=== PATIENT | male | born 1960 ===

== ENCOUNTER 2018-05-14 10:40 | Inpatient (IN) | payer BC ==
[2018-05-14] MEDS ORDERED: DiphenhydrAMINE 50 mg/ml Inj IVP STA (11:27)
[2018-05-14 11:55] LABS: EOS % 0.1 % (0.0-4.0); LYMPH # 0.5 K/uL (1.0-4.3); MONO # 0.6 K/uL (0.0-0.8)
[2018-05-14 11:57] LABS: SQUAMOUS EPITHIAL < 1 /hpf (0-5); URINE BACTERIA RARE (<OCC); URINE BILIRUBIN NEGATIVE (NEGATIVE); URINE CLARITY Clear (Clear); URINE COLOR Yellow (YELLOW); URINE GLUCOSE (UA) NORMAL (Normal); URINE LEUKOCYTE ESTERASE NEG Leu/uL (Negative); URINE PROTEIN 1+ mg/dL (NEGATIVE)
[2018-05-14 11:59] LABS: BASO % 0.2 % (0.0-2.0); HEMOGLOBIN 13.7 g/dL (12.0-18.0); MEAN CELL VOLUME 84.2 fL (80.0-94.0); MEAN CORPUSCULAR HEMOGLOBIN 29.7 pg (27.0-31.0); MEAN CORPUSCULAR HGB CONC 35.3 g/dL (33.0-37.0); MEAN PLATELET VOLUME 7.8 fL (7.2-11.7); MONO % 8.8 % (0.0-10.0); NEUT % 83.9 % (50.0-75.0); NRBC % 0.2 % (0.0-2.0); RBC 4.62 Mil/uL (4.40-5.90); RED CELL DISTRIBUTION WIDTH 13.9 % (11.5-14.5); WHITE BLOOD COUNT 7.2 K/uL (4.8-10.8)
[2018-05-14 12:00] LABS: PLATELET COUNT 106 K/uL (130-400)
[2018-05-14] MEDS ORDERED: DiphenhydrAMINE 50 mg/ml Inj ONE (12:00)
[2018-05-14 12:03] LABS: URINE BLOOD 2+ (NEGATIVE)
[2018-05-14 12:08] LABS: ALB/GLOB RATIO 1.2 (1.0-2.1); ALBUMIN 4.1 g/dL (3.5-5.0); ALT/SGPT 203 U/L (21-72); AST/SGOT 149 U/L (17-59); BLOOD UREA NITROGEN 14 mg/dL (9-20); CALCIUM 9.8 mg/dl (8.6-10.4); GFR AFRICAN-AMERICAN > 60; GFR NON-AFRICAN AMERICAN > 60
[2018-05-14 12:12] VITALS: RESP 20
[2018-05-14 12:17] LABS: LYMPHOCYTE 11 % (20-40); MONOCYTE 5 % (0-10); NEUTROPHIL 84 % (50-75); PLATELET ESTIMATE SLIGHTLY DECREASED (NORMAL); TOTAL CELLS COUNTED 100
--- NOTE | 2018-05-14 14:02 | CT ---
Date of service: 05/14/2018 PROCEDURE: CT HEAD WITHOUT CONTRAST. HISTORY: dizziness COMPARISON: None available. TECHNIQUE: Axial computed tomography images were obtained through the head/brain without intravenous contrast. Radiation dose: Total exam DLP = 917.87 mGy-cm. This CT exam was performed using one or more of the following dose reduction techniques: Automated exposure control, adjustment of the mA and/or kV according to patient size, and/or use of iterative reconstruction technique. FINDINGS: HEMORRHAGE: No intracranial hemorrhage. BRAIN: Trace lucency is seen at the low left frontal lobe in subcortical white matter under 1 cm size. This may reflect chronic microangiopathy. No cortical edema is seen associated with this structure in the remaining white matter is normal in density overall, including the corpus callosum. Normal corticomedullary differentiation is appreciated throughout the brain and there is no mass effect. No suspicious extra-axial fluid collection identified. VENTRICLES: Unremarkable. No hydrocephalus. CALVARIUM: Unremarkable. PARANASAL SINUSES: Unremarkable as visualized. No significant inflammatory changes. MASTOID AIR CELLS: Unremarkable as visualized. No inflammatory changes. OTHER FINDINGS: None. IMPRESSION: Limited subcortical lucency left frontal lobe may reflect chronic microangiopathy this patient, which would be for age-appropriate. Given the normal appearance of the remaining supra and infratentorial brain parenchyma, precaution follow-up MRI is recommended nevertheless. No CT evidence of intracranial hemorrhage mass effect or cortical edema.
[2018-05-14] MEDS ORDERED: cefTRIAXone IV 1 gm in Dextros 50 ML IVPB ONE (14:11)
--- NOTE | 2018-05-14 14:30 | RAD ---
Date of service: 05/14/2018 HISTORY: SOB COMPARISON: No prior. TECHNIQUE: Chest PA and lateral FINDINGS: LUNGS: No active pulmonary disease. PLEURA: No significant pleural effusion identified. No pneumothorax apparent. CARDIOVASCULAR: Normal. OSSEOUS STRUCTURES: No significant abnormalities. VISUALIZED UPPER ABDOMEN: Normal. OTHER FINDINGS: None. IMPRESSION: No acute cardiopulmonary disease appreciated.
--- NOTE | 2018-05-14 14:45 | C.PDOC ---
History Of Present Illness 58 year old male with a history of HIV (CD4 500, viral load undetectable) reports a five-day history of experiencing headaches, body aches, nausea, vomiting, and a tactile fever for which he did not obtain a temperature. Patient reports that his headache is of gradual onset and denies thunderclap association. Patient denies cough, diarrhea, rash, or recent travel. He reports being evaluated at [facility] four days ago, where he was placed on Augmentin for sinusitis, with no relief of his symptoms. Time Seen by Provider: 05/14/18 11:10 Chief Complaint (Nursing): Headache History Per: Patient History/Exam Limitations: no limitations Onset/Duration Of Symptoms: Days (5) Current Symptoms Are (Timing): Still Present Quality: Aching Past Medical History Reviewed: Historical Data, Nursing Documentation, Vital Signs Vital Signs: Last Vital Signs Temp 99.7 F H 05/14/18 12:11 Pulse 73 05/14/18 12:11 Resp 20 05/14/18 12:11 BP 143/72 05/14/18 12:11 Pulse Ox 96 05/14/18 15:08 - Medical History PMH: HIV Surgical History: No Surg Hx Family History: States: No Known Family Hx - Social History Hx Alcohol Use: No Hx Substance Use: No - Immunization History Hx Tetanus Toxoid Vaccination: No Hx Influenza Vaccination: No Hx Pneumococcal Vaccination: No Review Of Systems Except As Marked, All Systems Reviewed And Found Negative. Constitutional: Positive for: Malaise Gastrointestinal: Positive for: Nausea, Vomiting Neurological: Positive for: Headache Physical Exam - Physical Exam Appears: Non-toxic, No Acute Distress Skin: Warm, Dry Head: Atraumatic, Normacephalic Eye(s): bilateral: Normal Inspection Nose: Normal, No Discharge Oral Mucosa: Moist Throat: Normal, No Erythema, No Exudate Neck: Normal, Supple Chest: Symmetrical, No Tenderness Cardiovascular: Rhythm Regular, No Murmur Respiratory: Normal Breath Sounds, No Rales, No Rhonchi, No Wheezing Gastrointestinal/Abdominal: Normal Exam, Soft, No Guarding, No Rebound Extremity: Tenderness (to bilateral triceps and thighs), Other (negative brudzinski's and kernig's signs, no weakness of extremities) Neurological/Psych: Oriented x3, Normal Speech, Normal Cognition ED Course And Treatment - Laboratory Results Result Diagrams: 05/14/18 11:49 05/14/18 11:49 O2 Sat by Pulse Oximetry: 96 (RA) Pulse Ox Interpretation: Normal Medical Decision Making Medical Decision Making: Assessment: Headache, vomiting Plan: CT Head w/o Contrast EKG CMP CPK Erythrocyte Sedimentation Rate CXR Two Views Benadryl 25mg IVP Reglan 10mg IVP Rocephin 1gm Tylenol 975mg PO Blood Culture Urine Culture Given dose of Abx to treat presumed sinusitis. CT Scan normal, patient was offered an LP but refused. Case discussed with Dr. Jayy Garsia, who agreed upon admission. Disposition Counseled Patient/Family Regarding: Studies Performed, Diagnosis, Need For Followup, Rx Given - Disposition Disposition: HOME/ ROUTINE Disposition Time: 14:42 Condition: STABLE Additional Instructions: d Prescriptions: Naproxen [Naprosyn] 500 mg PO BID PRN #16 tab PRN Reason: Pain, Moderate (4-7) Ondansetron ODT [Zofran ODT] 4 mg PO TID PRN #12 odt PRN Reason: Nausea/Vomiting Instructions: Headache, Adult, Muscle and Bone Pain (DC) - Clinical Impression Clinical Impression: Headache, Muscle ache - Scribe Statement The provider has reviewed the documentation as recorded by the Scribe (Espinoza Washington) Provider Attestation: All medical record entries made by the Scribe were at my direction and personally dictated by me. I have reviewed the chart and agree that the record accurately reflects my personal performance of the history, physical exam, medical decision making, and the department course for this patient. I have also personally directed, reviewed, and agree with the discharge instructions and disposition.
--- NOTE | 2018-05-14 17:36 | CP.PCM.HP ---
Present on Admission - Present on Admission Any Indicators Present on Admission: No Past Patient History - Past Social History Smoking Status: Never Smoked - HEMATOLOGICAL/ONCOLOGICAL Hx Human Immunodeficiency Virus (HIV): Yes - PSYCHIATRIC Hx Substance Use: No Meds Home Medications: Home Medication List Medication Instructions Recorded Confirmed Type Naproxen [Naprosyn] 500 mg PO BID PRN #16 tab 05/14/18 Rx Ondansetron ODT [Zofran ODT] 4 mg PO TID PRN #12 odt 05/14/18 Rx Allergies/Adverse Reactions: Allergies Allergy/AdvReac Type Severity Reaction Status Date / Time No Known Allergies Allergy Unverified 05/14/18 10:55 Results - Vital Signs Recent Vital Signs: Last Vital Signs Temp 99.7 F H 05/14/18 16:06 Pulse 52 L 05/14/18 16:06 Resp 20 05/14/18 16:06 BP 103/72 05/14/18 16:06 Pulse Ox 98 05/14/18 16:06 - Labs Result Diagrams: 05/14/18 11:49 05/14/18 11:49 Labs: Laboratory Results - last 24 hr 05/14/18 05/14/18 05/14/18 11:49 11:49 11:49 WBC 7.2 RBC 4.62 Hgb 13.7 Hct 38.9 MCV 84.2 MCH 29.7 MCHC 35.3 RDW 13.9 Plt Count 106 L MPV 7.8 Neut % (Auto) 83.9 H Lymph % (Auto) 7.0 L [place] % (Auto) 8.8 Eos % (Auto) 0.1 Baso % (Auto) 0.2 Neut # (Auto) 6.0 Lymph # (Auto) 0.5 L [place] # (Auto) 0.6 Eos # (Auto) 0.0 Baso # (Auto) 0.0 Neutrophils % (Manual) 84 H Lymphocytes % (Manual) 11 L Monocytes % (Manual) 5 Platelet Estimate Slightly decreased L RBC Morphology Normal ESR 40 H Sodium 142 Potassium 4.4 Chloride 101 Carbon Dioxide 28 Anion Gap 18 BUN 14 Creatinine 1.1 Est GFR ( Amer) > 60 Est GFR (Non-Af Amer) > 60 Random Glucose 150 H Calcium 9.8 Total Bilirubin 1.1 AST 149 H ALT 203 H Alkaline Phosphatase 165 H Total Creatine Kinase Total Protein 7.4 Albumin 4.1 Globulin 3.3 Albumin/Globulin Ratio 1.2 TSH 3rd Generation 0.86 Urine Color Yellow Urine Clarity Clear Urine pH 5.0 Ur Specific [place] 1.010 Urine Protein 1+ H Urine Glucose (UA) Normal Urine Ketones Negative Urine Blood 2+ H Urine Nitrate Negative Urine Bilirubin Negative Urine Urobilinogen 4.0 Ur Leukocyte Esterase Neg Urine WBC (Auto) 2 Urine RBC (Auto) 9 H Ur Squamous Epith Cells < 1 Urine Bacteria Rare 05/14/18 11:49 WBC RBC Hgb Hct MCV MCH MCHC RDW Plt Count MPV Neut % (Auto) Lymph % (Auto) [place] % (Auto) Eos % (Auto) Baso % (Auto) Neut # (Auto) Lymph # (Auto) [place] # (Auto) Eos # (Auto) Baso # (Auto) Neutrophils % (Manual) Lymphocytes % (Manual) Monocytes % (Manual) Platelet Estimate RBC Morphology ESR Sodium Potassium Chloride Carbon Dioxide Anion Gap BUN Creatinine Est GFR ( Amer) Est GFR (Non-Af Amer) Random Glucose Calcium Total Bilirubin AST ALT Alkaline Phosphatase Total Creatine Kinase 110 Total Protein Albumin Globulin Albumin/Globulin Ratio TSH 3rd Generation Urine Color Urine Clarity Urine pH Ur Specific [place] Urine Protein Urine Glucose (UA) Urine Ketones Urine Blood Urine Nitrate Urine Bilirubin Urine Urobilinogen Ur Leukocyte Esterase Urine WBC (Auto) Urine RBC (Auto) Ur Squamous Epith Cells Urine Bacteria Assessment & Plan - Assessment and Plan (Free Text) Plan: Rocephin blood culture and urine culture Protonix Lovenox Rocephin ID consult Tramadol As needed for pain Monitor the fever Follow-up with the septic work
[2018-05-14] MEDS: Vancomycin 1 GM in Sodium Chloride 0.9% 200 ML IVPB SCH (19:57)
[2018-05-14 21:58] LABS: N MENINGITIS ACY/W135 NEGATIVE (NEGATIVE); N MENINGITIS B/ECOLI K1 NEGATIVE (NEGATIVE); STREP PNEUMONIAE NEGATIVE (NEGATIVE); STREPTOCOCCUS B NEGATIVE (NEGATIVE)
[2018-05-15] MEDS: Vancomycin 1 GM in Sodium Chloride 0.9% 200 ML IVPB SCH ×2 (06:30→18:35)
[2018-05-15 07:53] LABS: HEPATITIS B SURFACE AG Negative (NEGATIVE)
[2018-05-15 07:59] LABS: HEPATITIS A IGM NEGATIVE (NEGATIVE); HEPATITIS B CORE AB NEGATIVE (NEGATIVE)
[2018-05-15 09:34] LABS: HEPATITIS C ANTIBODY REACTIVE (NEGATIVE)
[2018-05-15] MEDS: Enoxaparin 40 mg Syringe SC SCH (10:50)
[2018-05-15] MEDS: Pantoprazole 40 mg EC Tab PO SCH (10:50)
--- NOTE | 2018-05-15 13:58 | MRI ---
Date of service: 05/15/2018 PROCEDURE: MRI BRAIN WITHOUT CONTRAST HISTORY: Severe headache, HIV COMPARISON: Comparison made with prior CT scan brain 05/14/2018. TECHNIQUE: Multiplanar, multisequence MR images of the brain were obtained without intravenous contrast enhancement. FINDINGS: HEMORRHAGE: No acute parenchymal, subarachnoid nor extra-axial hemorrhage. No evidence of hemosiderin deposition identified on gradient echo weighted sequence. DWI: No evidence of an acute or early subacute infarction seen on diffusion imaging. . . BRAIN PARENCHYMA: There are multiple varying sized of small foci of low prolonged T2 signal seen scattered about subcortical white matter both cerebral hemispheres. Changes are nonspecific though could represent tiny chronic lacunar type infarcts. Differential diagnosis would include sequela of old trauma, migraine headaches or post infectious/ inflammatory etiologies. Demyelinating disease process would be less likely. None of these changes exhibit restricted diffusion No obvious parenchymal nor extra-axial mass or collection identified on this noncontrast exam Ventricular and sulcal size are within range of normal for this patient's stated age. VENTRICLES: No obstructive hydrocephalus. CRANIUM: Unremarkable. ORBITS: Orbits and contents appear grossly unremarkable PARANASAL SINUSES/MASTOIDS: Tiny focus of mucosal thickening in the posterior aspect right maxillary antrum again noted VASCULAR SYSTEM: Visualized major vascular flow voids at skull base patent. OTHER FINDINGS: None. IMPRESSION: No acute intracranial hemorrhage or infarct. Multiple small focal areas of increased T2 signal scattered about subcortical white matter both cerebral hemispheres nonspecific. Changes are of uncertain etiology though could represent sequela of small vessel disease. See above discussion for additional differential diagnostic considerations. Left L1: Dilation aspect frontal correlate
--- NOTE | 2018-05-15 15:36 | CP.PCM.CON ---
History of Present Illness - History of Present Illness History of Present Illness: dictated Past Patient History - Past Social History Smoking Status: Never Smoked - HEMATOLOGICAL/ONCOLOGICAL Hx Human Immunodeficiency Virus (HIV): Yes - PSYCHIATRIC Hx Substance Use: No Meds Home Medications: Home Medication List Medication Instructions Recorded Confirmed Type Naproxen [Naprosyn] 500 mg PO BID PRN #16 tab 05/14/18 Rx Ondansetron ODT [Zofran ODT] 4 mg PO TID PRN #12 odt 05/14/18 Rx Allergies/Adverse Reactions: Allergies Allergy/AdvReac Type Severity Reaction Status Date / Time No Known Allergies Allergy Unverified 05/14/18 10:55 - Medications Medications: Current Medications Enoxaparin Sodium (Lovenox) 40 mg SC DAILY [facility] Last Admin: 05/15/18 10:50 Dose: 40 mg Home Med (Emtricitab/Rilpiviri/Tenof Ala [Odefsey Tablet]) 1 tab PO DAILY [facility] Ceftriaxone Sodium 2 gm/ (Sodium Chloride) 100 mls @ 100 mls/hr IVPB Q12H [facility] PRN Reason: Protocol Last Admin: 05/15/18 03:00 Dose: 100 mls/hr Vancomycin HCl 1 gm/ Sodium (Chloride) 200 mls @ 133.333 mls/hr IVPB Q12H [facility] PRN Reason: Protocol Last Admin: 05/15/18 06:30 Dose: 133.333 mls/hr Ondansetron HCl (Zofran Inj) 4 mg IVP Q6H PRN PRN Reason: Nausea/Vomiting Pantoprazole Sodium (Protonix Ec Tab) 40 mg PO DAILY [facility] Last Admin: 05/15/18 10:50 Dose: 40 mg Tramadol HCl (Ultram) 50 mg PO Q6H PRN PRN Reason: Headache Last Admin: 05/14/18 19:12 Dose: 50 mg Results - Vital Signs Recent Vital Signs: Last Vital Signs Temp 98.4 F 05/15/18 08:11 Pulse 57 L 05/15/18 08:11 Resp 20 05/15/18 08:11 BP 103/54 L 05/15/18 08:11 Pulse Ox 99 05/15/18 08:11 - Labs Result Diagrams: 05/14/18 11:49 05/14/18 11:49 Labs: Laboratory Results - last 24 hr 0805/14/18 05/14/18 20:16 20:16 22:20 Hepatitis A IgM Ab Negative Hep Bs Antigen Negative Hep B Core IgM Ab Negative Hepatitis C Antibody Reactive Influenza Typ A,B (EIA) Negative for flu a/b H.influenzae Type B Ag Negative N.meningitidis ACY/W135 Negative N.meningi B/E.coli K1 Ag Negative Group B Strep Antigen Negative S. pneumoniae Antigen Negative
--- NOTE | 2018-05-15 19:06 | CP.PCM.PN ---
Subjective - Date & Time of Evaluation Date of Evaluation: 05/15/18 Time of Evaluation: 08:20 - Subjective Subjective: clinically same Objective - Vital Signs/Intake and Output Vital Signs (last 24 hours): Temp Pulse Resp BP Pulse Ox 98.5 F 53 L 20 109/71 99 05/15/18 16:16 05/15/18 16:16 05/15/18 16:16 05/15/18 16:16 05/15/18 16:16 - Medications Medications: Current Medications Enoxaparin Sodium (Lovenox) 40 mg SC DAILY [facility] Last Admin: 05/15/18 10:50 Dose: 40 mg Home Med (Emtricitab/Rilpiviri/Tenof Ala [Odefsey Tablet]) 1 tab PO DAILY [facility] Ceftriaxone Sodium 2 gm/ (Sodium Chloride) 100 mls @ 100 mls/hr IVPB Q12H [facility] PRN Reason: Protocol Last Admin: 05/15/18 16:26 Dose: 100 mls/hr Vancomycin HCl 1 gm/ Sodium (Chloride) 200 mls @ 133.333 mls/hr IVPB Q12H [facility] PRN Reason: Protocol Last Admin: 05/15/18 18:35 Dose: 133.333 mls/hr Ondansetron HCl (Zofran Inj) 4 mg IVP Q6H PRN PRN Reason: Nausea/Vomiting Pantoprazole Sodium (Protonix Ec Tab) 40 mg PO DAILY [facility] Last Admin: 05/15/18 10:50 Dose: 40 mg Tramadol HCl (Ultram) 50 mg PO Q6H PRN PRN Reason: Headache Last Admin: 05/14/18 19:12 Dose: 50 mg - Labs Labs: 05/14/18 11:49 05/14/18 11:49 - Constitutional Appears: Well - Head Exam Head Exam: ATRAUMATIC, NORMAL INSPECTION, NORMOCEPHALIC - Eye Exam Eye Exam: EOMI, Normal appearance, PERRL Pupil Exam: NORMAL ACCOMODATION, PERRL - ENT Exam ENT Exam: Mucous Membranes Moist, Normal Exam - Neck Exam Neck Exam: Full ROM, Normal Inspection. absent: Lymphadenopathy - Respiratory Exam Respiratory Exam: Decreased Breath Sounds - Cardiovascular Exam Cardiovascular Exam: REGULAR RHYTHM, +S1, +S2 - GI/Abdominal Exam GI & Abdominal Exam: Soft, Diminished Bowel Sounds - Rectal Exam Rectal Exam: Deferred
--- NOTE | 2018-05-16 | CARD ---
APPROVED REPORT Date of service: 05/14/2018 EKG Measurement Heart [id number] <Conclusion> Normal sinus rhythm Septal infarct, age undetermined Abnormal ECG
[2018-05-16 06:05] LABS: BASO % 0.2 % (0.0-2.0); EOS % 0.2 % (0.0-4.0); HEMOGLOBIN 12.1 g/dL (12.0-18.0); LYMPH # 0.8 K/uL (1.0-4.3); LYMPH % 12.8 % (20.0-40.0); MEAN CELL VOLUME 83.3 fL (80.0-94.0); MEAN CORPUSCULAR HEMOGLOBIN 28.8 pg (27.0-31.0); MEAN CORPUSCULAR HGB CONC 34.6 g/dL (33.0-37.0); MEAN PLATELET VOLUME 7.4 fL (7.2-11.7); MONO # 0.6 K/uL (0.0-0.8); MONO % 9.8 % (0.0-10.0); NEUT # 4.8 K/uL (1.8-7.0); NRBC % 0.3 % (0.0-2.0); RBC 4.2 Mil/uL (4.40-5.90); RED CELL DISTRIBUTION WIDTH 13.6 % (11.5-14.5); WHITE BLOOD COUNT 6.2 K/uL (4.8-10.8)
[2018-05-16] MEDS: Vancomycin 1 GM in Sodium Chloride 0.9% 200 ML IVPB SCH ×2 (06:30→19:37)
--- NOTE | 2018-05-16 07:02 | CON ---
Copied To: Capo Wong MD Attending MD: Capo Wong MD DATE: 05/15/2018 INFECTIOUS DISEASE CONSULT REQUESTED BY: Tahmina Garsia MD HISTORY OF PRESENT ILLNESS: This patient is a 58-year-old male. He has history of HIV, but he says his CD4 count is almost 700, and the viral load is undetectable. Partner is at the bedside, and he tells both of them are there, and he says that on Tuesday night, he started to have terrible headache, and he has suffered sinusitis in the past, and he thought it was that. He went to a [facility] and was also having pounding headache and was nauseous. He felt like knot in the head; and in the [facility], they thought of sinusitis, gave him Augmentin. He took one dose of Augmentin in the morning. He did not feel better, and then he took Naprosyn also during the interim, and he had no relief, and he started to vomit a lot, and he has been feeling weak and febrile; and he said he has continued to have fevers and multiple vomiting, and denied any diarrhea. Denies abdominal pain and was nauseated and came to the hospital here with severe headache, and he was seen in the emergency room, and he said he did have fevers at home and has been vomiting a lot. Denies any diarrhea. He did say that he ate some food that somebody brings him on Tuesday which he cooked on Tuesday which is a fish and some plants, but he denies any diarrhea, so I am not sure if that has any significance to this but he does give me history of having sinus surgery 35 years ago in [facility]. He said it was severe. They went through the and he has HIV for 10 years. He was on Complera before. He follows in [facility], and one month ago, he was changed to Odefsey as Complera was causing some problem, and the patient had terrible headaches. Only today, he started to feel slightly better. He still feels weak. He says if you tell me to stand up, I will fall down because I feel lot of weakness in my legs right now, and he is just trying to eat. Denies any urine problem. Denies any diarrhea. Did have nausea, vomiting, and headaches with which he came to the hospital, and he is HIV positive. He has always been on some medication. FAMILY HISTORY: Noncontributory. SOCIAL HISTORY He drinks alcohol socially. Denies any drug or substance abuse. REVIEW OF SYSTEMS: He was having malaise, nausea, vomiting, and having headaches and was feeling feverish. Did have headache in the frontal area mostly, and right now, he denies any cough, cold, or any trouble breathing. No palpitations. Denies any dizziness right now or syncope. Denies any ear, nose, throat problems he said, and he did take ibuprofen to relieve his headache; and after that, he says he started to vomit a lot, so I am not sure if it was related to it. He is able to give history. He denies any localized weakness except for weakness in the lower extremities which I did not make him stand at this time. On examination, I find his temperatures were 99.7, 99.9, so he did have fevers yesterday. We had placed him on vancomycin and Rocephin as I could not see him yesterday, and I got the story that he has headaches, vomiting, and have to rule out meningitis in the patient who was HIV positive; and he has no hemoptysis, hematemesis, or melena. He does not have any history of migraines. He says he may have had a CAT scan or an MRI done in few years ago for sinusitis. PHYSICAL EXAMINATION: VITAL SIGNS: His T-max is 99.9 yesterday, pulse is 57, blood pressure is 103/54, respirations are 20. GENERAL: He is alert, oriented. HEENT: Pupils are reacting to light. Denies any frontal headache right now. Tongue is dry. NECK: Supple. No lymphadenopathy present. He does complain of pain in the neck when I made him to do LUNGS: Clear. No crackles or rales present. HEART: S1, S2 regular. No murmurs appreciated. ABDOMEN: Soft, nontender. No guarding, no rigidity present. No epigastric tenderness present. EXTREMITIES: Have no edema. Labs are noted. Labs show white count is 7.2; hemoglobin 13.7; hematocrit is 38.9; platelet count is 106, is low; neutrophils 83.9; lymphs of 7; BUN is 14; creatinine is 1.1; AST is 149; ALT is 209; alkaline phosphatase is 165, is elevated. UA shows protein plus, blood 2+, leukocytes negative, wbc's 2, rbc 9. His hepatitis C is reactive, so he probably has had PE and the serology came back negative, and then labs are noted. Chest x-ray shows no acute cardiopulmonary disease. Head CT was done yesterday, and it showed limited subcortical lucency, left frontal lobe, may reflect chronic micro angioplasty in this patient which would be for age-appropriate given the normal appearance of the remaining supra and infratentorial brain parenchyma precaution. Followup MRI is recommended. Nonetheless, no CT evidence of intracranial hemorrhage, mass effect, or cortical edema. Brain MRI was done which shows there are multiple small focal areas of scattered about subcortical white matter, both cerebral hemisphere, nonspecific, changes are of uncertain etiology that could represent sequelae of small-vessel disease. See above discussion for additional diagnostic considerations. When you look off on the substance of the brain MRI, there are multiple varying size of foci of low prolonged T2 spinal, scattered about subcortical white matter, both cerebral hemisphere. Changes are nonspecific though could represent tiny chronic lacunar type infarct. Differential diagnosis include old trauma, migraine headaches, postinfectious or inflammatory etiology, demyelinating disease process could be less likely. So at this time, there were blood cultures and urine culture done. He is feeling slightly better at this time but is still weak. I would continue the Rocephin 2 g and vancomycin, and probably, he had intractable headaches with sinusitis but he has these lesions which needs to be evaluated by the neurologist. We will follow. We do not have HIV medicine here so we are also trying to bring the medicine for him. He has human immunodeficiency virus and hepatitis C, both. We will follow. Capo Wong MD
[2018-05-16 07:31] LABS: ALBUMIN 3.1 g/dL (3.5-5.0); ALT/SGPT 138 U/L (21-72); AST/SGOT 66 U/L (17-59); BLOOD UREA NITROGEN 16 mg/dL (9-20); CALCIUM 8.7 mg/dl (8.6-10.4); GFR AFRICAN-AMERICAN > 60; GFR NON-AFRICAN AMERICAN > 60
--- NOTE | 2018-05-16 09:24 | CP.PCM.PN ---
Subjective - Date & Time of Evaluation Date of Evaluation: 05/16/18 Time of Evaluation: 09:24 - Subjective Subjective: Progress Note for Dr. Deyanira Garsia Patient seen and examined at bedside. Per nursing no acute events occurred overnight. Patient still does report some weakness in his lower extremities. Patient denies any chest pain, headaches, changes in vision, palpitations, chest pain, syncopal episodes, or any other complaints. 58 year old male with a past medical history of hiv and sinusitus who comes in after complaining of weakness and headaches that began over the past week. Patient states when standing he noticed he couldn't stand longer than a couple of minutes before feeling like his legs would buckle. He also reported headaches in conjunction with the presenting symptom. He denies taking thing at home to improve the symptoms. The patient reports taking his anti-retroviral medications as prescribed and follows up with his Infectious disease doctor. Patient denies any cough, fevers, chills, nausea, vomiting, recent travel, syncopal episodes, or any other complaints. PMH: sinusitis, HIV Surgical history: sinus surgery done in [facility] 35 years ago Medications: [place] Allergies: Denies PMD: Denies Objective - Vital Signs/Intake and Output Vital Signs (last 24 hours): Temp Pulse Resp BP Pulse Ox 98.4 F 60 20 124/68 96 05/16/18 07:39 05/16/18 07:39 05/16/18 07:39 05/16/18 07:39 05/16/18 07:39 Intake and Output: 05/16/18 05/16/18 06:59 18:59 Intake Total 700 Balance 700 - Medications Medications: Current Medications Enoxaparin Sodium (Lovenox) 40 mg SC DAILY [facility] Last Admin: 05/15/18 10:50 Dose: 40 mg Home Med (Emtricitab/Rilpiviri/Tenof Ala [Odefsey Tablet]) 1 tab PO DAILY [facility] Ceftriaxone Sodium 2 gm/ (Sodium Chloride) 100 mls @ 100 mls/hr IVPB Q12H [facility] PRN Reason: Protocol Last Admin: 05/16/18 02:59 Dose: 100 mls/hr Vancomycin HCl 1 gm/ Sodium (Chloride) 200 mls @ 133.333 mls/hr IVPB Q12H [facility] PRN Reason: Protocol Last Admin: 05/16/18 06:30 Dose: 133.333 mls/hr Ondansetron HCl (Zofran Inj) 4 mg IVP Q6H PRN PRN Reason: Nausea/Vomiting Pantoprazole Sodium (Protonix Ec Tab) 40 mg PO DAILY [facility] Last Admin: 05/15/18 10:50 Dose: 40 mg Tramadol HCl (Ultram) 50 mg PO Q6H PRN PRN Reason: Headache Last Admin: 05/14/18 19:12 Dose: 50 mg - Labs Labs: 05/16/18 05:57 05/16/18 05:57 - Head Exam Head Exam: ATRAUMATIC, NORMAL INSPECTION, NORMOCEPHALIC - Eye Exam Eye Exam: Normal appearance, PERRL Pupil Exam: NORMAL ACCOMODATION - ENT Exam ENT Exam: Mucous Membranes Moist, Normal Oropharynx - Respiratory Exam Respiratory Exam: Clear to Ausculation Bilateral, NORMAL BREATHING PATTERN. absent: Chest Wall Tenderness, Prolonged Expiratory Phase, Respiratory Distress - Cardiovascular Exam Cardiovascular Exam: REGULAR RHYTHM, RRR, +S1, +S2. absent: Rubs - GI/Abdominal Exam GI & Abdominal Exam: Soft, Normal Bowel Sounds - Extremities Exam Extremities Exam: Full ROM, Normal Inspection. absent: Joint Swelling, Pedal Edema - Neurological Exam Neurological Exam: Alert, Awake, CN II-XII Intact, Oriented x3 - Psychiatric Exam Psychiatric exam: Normal Affect, Normal Mood. absent: Depressed - Skin Skin Exam: Dry, Intact Assessment and Plan - Assessment and Plan (Free Text) Assessment: 58 year old male with a past medical history of hiv and sinusitus who comes in after complaining of weakness and headaches. Plan: 1. Weakness Bacterial vs. Viral vs. Acute CVA -Neurology consulted Dr. Escobar. Help appreciated :Will f/u with further rec's -Afrebrile and not showing menigeal signs. Neurologically intact -Influenza : negative -Urine cultures: Negative -Blood culture: negative x48 hours. -h.influenzae type b ag: negative -N. meningitidis ACY/W135: negative -N. meningitidis B/E. coli K1 Ag: negative -Group B strep antigen : negative -S. pneumonai antigen: negative -Toxoplasma antibody: positive -Cryptococcus ag: negative Medications: Vancomycin 1gm q12 kati ivpb (Start: 05/14/18) Ceftriaxone 2gm q12 kati ivpb( Start: 05/15/18) 2.HIV -Patient reports last CD4 count being in the 700's and having undectable viral load -Patient follows in [facility] with Infectious Disease Dr. Wilks in [facility]. -CD4 count ordered .Will f/u with results. -Infectious disease Dr. Wong consulted. Help appreciated. -HIV viral load :Undectable Medications: Oedefsey 1 Tab PO Daily [facility] 3.Nausea/vomting -Zofran 4mg IVP Q6 PRN 4. Hepatitis C -Hepatitis Panel :Positive for Hep C antibody -Hepatitis C viral load ordered :Will f/u with results -Infectious disease consulted. Help appreciated. 5. Tranaminitis Likely secondary to Hepatitis C infection AST:66 ALT:138 PPX -Protonix 40mg PO Daily [facility] -Lovenox 40mg SC Daily All management per Dr. Deyanira Garsia
[2018-05-16] MEDS: Enoxaparin 40 mg Syringe SC SCH (10:02)
[2018-05-16] MEDS: Pantoprazole 40 mg EC Tab PO SCH (10:03)
[2018-05-16] MEDS ORDERED: Potassium Chloride 20 mEq ER Tab PO ONE (10:15)
--- NOTE | 2018-05-16 17:54 | CP.PCM.CON ---
History of Present Illness - History of Present Illness History of Present Illness: Neurology Consultation Note: Mr. Wilson is a 58-year-old man with a past medical history of HIV (last CD4 over 500, viral load was undetectable), who has had a headache for the last week associated with body aches, nausea and vomiting. He was given Augmentin for sinusitis, but did not have relief. Vital signs have been normal and he has been afebrile. When I saw the patient, he said that he was feeling much better and back to normal. MRI of the brain showed some scattered T2 hyperintensities of no significant clinical significance. Review of Systems - Review of Systems All systems: reviewed and no additional remarkable complaints except Past Patient History - Past Social History Smoking Status: Never Smoked - HEMATOLOGICAL/ONCOLOGICAL Hx Human Immunodeficiency Virus (HIV): Yes - PSYCHIATRIC Hx Substance Use: No Meds Home Medications: Home Medication List Medication Instructions Recorded Confirmed Type Naproxen [Naprosyn] 500 mg PO BID PRN #16 tab 05/14/18 Rx Ondansetron ODT [Zofran ODT] 4 mg PO TID PRN #12 odt 05/14/18 Rx Allergies/Adverse Reactions: Allergies Allergy/AdvReac Type Severity Reaction Status Date / Time No Known Allergies Allergy Unverified 05/14/18 10:55 - Medications Medications: Current Medications Enoxaparin Sodium (Lovenox) 40 mg SC DAILY [facility] Last Admin: 05/16/18 10:02 Dose: 40 mg Home Med (Emtricitab/Rilpiviri/Tenof Ala [Odefsey Tablet]) 1 tab PO DAILY [facility] Ceftriaxone Sodium 2 gm/ (Sodium Chloride) 100 mls @ 100 mls/hr IVPB Q12H [facility] PRN Reason: Protocol Last Admin: 05/16/18 16:13 Dose: 100 mls/hr Vancomycin HCl 1 gm/ Sodium (Chloride) 200 mls @ 133.333 mls/hr IVPB Q12H HINA PRN Reason: Protocol Last Admin: 05/16/18 06:30 Dose: 133.333 mls/hr Ondansetron HCl (Zofran Inj) 4 mg IVP Q6H PRN PRN Reason: Nausea/Vomiting Pantoprazole Sodium (Protonix Ec Tab) 40 mg PO DAILY [facility] Last Admin: 05/16/18 10:03 Dose: 40 mg Tramadol HCl (Ultram) 50 mg PO Q6H PRN PRN Reason: Headache Last Admin: 05/14/18 19:12 Dose: 50 mg Physical Exam - Neurological Exam Neurological exam: Alert, CN II-XII Intact, Normal Gait, Oriented x3, Reflexes Normal Additional comments: No neck stiffness, no meningeal signs. Results - Vital Signs Recent Vital Signs: Last Vital Signs Temp 99.3 F 05/16/18 16:29 Pulse 50 L 05/16/18 16:29 Resp 20 05/16/18 16:29 BP 131/71 05/16/18 16:29 Pulse Ox 99 05/16/18 16:29 - Labs Result Diagrams: 05/16/18 05:57 05/16/18 05:57 Labs: Laboratory Results - last 24 hr 05/14/18 05/15/18 05/15/18 20:16 16:31 16:31 WBC RBC Hgb Hct MCV MCH MCHC RDW Plt Count MPV Neut % (Auto) Lymph % (Auto) Coleman % (Auto) Eos % (Auto) Baso % (Auto) Neut # (Auto) Lymph # (Auto) Coleman # (Auto) Eos # (Auto) Baso # (Auto) ESR Sodium Potassium Chloride Carbon Dioxide Anion Gap BUN Creatinine Est GFR ( Amer) Est GFR (Non-Af Amer) Random Glucose Calcium Total Bilirubin AST ALT Alkaline Phosphatase Total Protein Albumin Globulin Albumin/Globulin Ratio Procalcitonin Cryptococcus Ag Negative HIV-1 RNA Qnt (RT-PCR) <1.30 not detected Toxoplasma Antibody Positive H 05/16/18 05/16/18 05/16/18 05:57 05:57 05:57 WBC 6.2 RBC 4.20 L Hgb 12.1 Hct 35.0 MCV 83.3 MCH 28.8 MCHC 34.6 RDW 13.6 Plt Count 142 MPV 7.4 Neut % (Auto) 77.0 H Lymph % (Auto) 12.8 L Coleman % (Auto) 9.8 Eos % (Auto) 0.2 Baso % (Auto) 0.2 Neut # (Auto) 4.8 Lymph # (Auto) 0.8 L Coleman # (Auto) 0.6 Eos # (Auto) 0.0 Baso # (Auto) 0.0 ESR 64 H Sodium 139 Potassium 3.4 L Chloride 103 Carbon Dioxide 27 Anion Gap 14 BUN 16 Creatinine 0.9 Est GFR ( Amer) > 60 Est GFR (Non-Af Amer) > 60 Random Glucose 112 H Calcium 8.7 Total Bilirubin 0.3 AST 66 H D ALT 138 H D Alkaline Phosphatase 145 H Total Protein 6.2 L Albumin 3.1 L D Globulin 3.1 Albumin/Globulin Ratio 1.0 Procalcitonin 0.59 H Cryptococcus Ag HIV-1 RNA Qnt (RT-PCR) Toxoplasma Antibody Assessment & Plan (1) Headache Assessment and Plan: The patient feels better with current medication regimen. Continue treating conservatively. I recommend starting magnesium oxide 400 mg BID for headache prevention. Follow up with outpatient neurology. Call [phone] to make an appointment. Status: Acute Priority: Medium
--- NOTE | 2018-05-16 20:32 | CP.PCM.PN ---
Subjective - Date & Time of Evaluation Date of Evaluation: 05/16/18 Time of Evaluation: 07:40 - Subjective Subjective: clinically same Objective - Vital Signs/Intake and Output Vital Signs (last 24 hours): Temp Pulse Resp BP Pulse Ox 99.3 F 50 L 20 131/71 99 05/16/18 16:29 05/16/18 16:29 05/16/18 16:29 05/16/18 16:29 05/16/18 16:29 Intake and Output: 05/16/18 05/17/18 18:59 06:59 Intake Total 400 Balance 400 - Medications Medications: Current Medications Enoxaparin Sodium (Lovenox) 40 mg SC DAILY [facility] Last Admin: 05/16/18 10:02 Dose: 40 mg Home Med (Emtricitab/Rilpiviri/Tenof Ala [Odefsey Tablet]) 1 tab PO DAILY [facility] Ceftriaxone Sodium 2 gm/ (Sodium Chloride) 100 mls @ 100 mls/hr IVPB Q12H [facility] PRN Reason: Protocol Last Admin: 05/16/18 16:13 Dose: 100 mls/hr Vancomycin HCl 1 gm/ Sodium (Chloride) 200 mls @ 133.333 mls/hr IVPB Q12H [facility] PRN Reason: Protocol Last Admin: 05/16/18 19:37 Dose: 133.333 mls/hr Ondansetron HCl (Zofran Inj) 4 mg IVP Q6H PRN PRN Reason: Nausea/Vomiting Pantoprazole Sodium (Protonix Ec Tab) 40 mg PO DAILY [facility] Last Admin: 05/16/18 10:03 Dose: 40 mg Tramadol HCl (Ultram) 50 mg PO Q6H PRN PRN Reason: Headache Last Admin: 05/14/18 19:12 Dose: 50 mg - Labs Labs: 05/16/18 05:57 05/16/18 05:57 - Constitutional Appears: Well - Head Exam Head Exam: ATRAUMATIC, NORMAL INSPECTION, NORMOCEPHALIC - Eye Exam Eye Exam: EOMI, Normal appearance, PERRL Pupil Exam: NORMAL ACCOMODATION, PERRL - ENT Exam ENT Exam: Mucous Membranes Moist, Normal Exam - Neck Exam Neck Exam: Full ROM, Normal Inspection. absent: Lymphadenopathy - Respiratory Exam Respiratory Exam: Decreased Breath Sounds - Cardiovascular Exam Cardiovascular Exam: REGULAR RHYTHM, +S1, +S2 - GI/Abdominal Exam GI & Abdominal Exam: Soft, Diminished Bowel Sounds - Rectal Exam Rectal Exam: Deferred
--- NOTE | 2018-05-16 21:03 | CP.PCM.PN ---
Subjective - Date & Time of Evaluation Date of Evaluation: 05/16/18 Time of Evaluation: 16:00 - Subjective Subjective: dictated Objective - Vital Signs/Intake and Output Vital Signs (last 24 hours): Temp Pulse Resp BP Pulse Ox 99.3 F 50 L 20 131/71 99 05/16/18 16:29 05/16/18 16:29 05/16/18 16:29 05/16/18 16:29 05/16/18 16:29 Intake and Output: 05/16/18 05/17/18 18:59 06:59 Intake Total 400 Balance 400 - Medications Medications: Current Medications Enoxaparin Sodium (Lovenox) 40 mg SC DAILY [facility] Last Admin: 05/16/18 10:02 Dose: 40 mg Home Med (Emtricitab/Rilpiviri/Tenof Ala [Odefsey Tablet]) 1 tab PO DAILY [facility] Ceftriaxone Sodium 2 gm/ (Sodium Chloride) 100 mls @ 100 mls/hr IVPB Q12H [facility] PRN Reason: Protocol Last Admin: 05/16/18 16:13 Dose: 100 mls/hr Vancomycin HCl 1 gm/ Sodium (Chloride) 200 mls @ 133.333 mls/hr IVPB Q12H [facility] PRN Reason: Protocol Last Admin: 05/16/18 19:37 Dose: 133.333 mls/hr Ondansetron HCl (Zofran Inj) 4 mg IVP Q6H PRN PRN Reason: Nausea/Vomiting Pantoprazole Sodium (Protonix Ec Tab) 40 mg PO DAILY [facility] Last Admin: 05/16/18 10:03 Dose: 40 mg Tramadol HCl (Ultram) 50 mg PO Q6H PRN PRN Reason: Headache Last Admin: 05/14/18 19:12 Dose: 50 mg - Labs Labs: 05/16/18 05:57 05/16/18 05:57
--- NOTE | 2018-05-17 01:58 | PN ---
Copied To: Capo Wong MD Attending MD: Capo Wong MD DATE: 05/16/2018 SUBJECTIVE: I saw the patient this afternoon prior to him seen by the neurologist. The patient was feeling a lot better. He still is having low grade temperature, right now was 99.3, when I saw heart rate was 50. He was concerned about not getting his HIV medication as this medicine is not available here in the formulary, and he says his headache were much better but it was definitely something worse than he had ever had, and he says he is getting over it. He does suffer from sinusitis before but the brain MRI did not show much of the sinus issues at this time, and I was waiting for him to be seen by the neurologist as the CAT scan showed multiple small lesions. He denies any nausea or vomiting. He is tolerating food. OBJECTIVE: VITAL SIGNS: T-max 99.3, pulse 50, blood pressure 131/71, respirations are 20. HEENT: Head is atraumatic. NECK: Supple. No maxillary or sinus tenderness present. LUNGS: Clear. No crackles or rales present. HEART: S1, S2 regular. ABDOMEN: Soft, nontender. No guarding, no rigidity present. EXTREMITIES: Have no edema. Both nares have very small openings so he probably suffers from allergic rhinitis also, and he says he uses Flonase. He did tell me that he cleaned a cat poop recently. I told him his toxoplasma titer was positive, and I was suggesting that we should get toxoplasma IgG and IgM, and I ordered a hepatitis C viral load as his hepatitis flare is positive, and since he is still here, I would also get an ultrasound of the gallbladder, he can get it done as outpatient. He has never been treated for hep C as it was written. I asked the patient, he said, he was never told he has hepatitis C also positive which I have told him that he should get, and the patient is tolerating Rocephin well. I will discontinue vancomycin. Since he is doing well on the present treatment, tomorrow we will let him go on Suprax 400 mg p.o. daily, and I will give him a week's worth of the medicines, and if he continues to have headaches, he needs to follow with ENT as he has had previous 35 years back surgery, and he says he does suffer from sinuses. Also I told him to follow about this toxoplasma IgG and IgM, I did request as I am not sure if it will be sent from here and that can associated with STAPLER HAND infections, and he has these lesions which I seen as of nonsignificant but maybe of significance in a patient with HIV disease, so he needs to follow with the neurologist, and we will discontinue vancomycin at this time with the Rocephin on, and in the morning, we will make sure vitals are okay and repeat labs, and we will send him on Suprax if it is agreeable by Dr. Peter Garsia, the primary. We will follow. He has human immunodeficiency virus disease, and he has hepatitis C. His CD4 and serology is pending. Capo Wong MD
[2018-05-17 06:30] LABS: BASO % 0.5 % (0.0-2.0); EOS % 0.8 % (0.0-4.0); HEMOGLOBIN 12.2 g/dL (12.0-18.0); LYMPH # 0.9 K/uL (1.0-4.3); MEAN CELL VOLUME 83.7 fL (80.0-94.0); MEAN CORPUSCULAR HGB CONC 34.7 g/dL (33.0-37.0); MEAN PLATELET VOLUME 7.1 fL (7.2-11.7); MONO # 0.7 K/uL (0.0-0.8); MONO % 13.7 % (0.0-10.0); NEUT # 3.2 K/uL (1.8-7.0); RBC 4.22 Mil/uL (4.40-5.90); RED CELL DISTRIBUTION WIDTH 13.8 % (11.5-14.5); WHITE BLOOD COUNT 4.8 K/uL (4.8-10.8)
--- NOTE | 2018-05-17 07:15 | CP.PCM.PN ---
Subjective - Date & Time of Evaluation Date of Evaluation: 05/17/18 Time of Evaluation: 07:00 - Subjective Subjective: PGY2 Progress Note for Dr. Garsia Patient seen and examined at bedside and in no acute distress. Patient says he feels fine and has no pain. Patient denies chest pain, abdominal pain, nausea, vomiting, constipation, or diarrhea. Objective - Vital Signs/Intake and Output Vital Signs (last 24 hours): Temp Pulse Resp BP Pulse Ox 99.4 F 60 20 118/61 97 05/16/18 23:40 05/16/18 23:40 05/16/18 23:40 05/16/18 23:40 05/16/18 23:40 Intake and Output: 05/17/18 05/17/18 06:59 18:59 Intake Total 1360 Output Total 600 Balance 760 - Medications Medications: Current Medications Enoxaparin Sodium (Lovenox) 40 mg SC DAILY [facility] Last Admin: 05/16/18 10:02 Dose: 40 mg Home Med (Emtricitab/Rilpiviri/Tenof Ala [Odefsey Tablet]) 1 tab PO DAILY [facility] Ceftriaxone Sodium 2 gm/ (Sodium Chloride) 100 mls @ 100 mls/hr IVPB Q12H [facility] PRN Reason: Protocol Last Admin: 05/17/18 04:06 Dose: 100 mls/hr Ondansetron HCl (Zofran Inj) 4 mg IVP Q6H PRN PRN Reason: Nausea/Vomiting Pantoprazole Sodium (Protonix Ec Tab) 40 mg PO DAILY [facility] Last Admin: 05/16/18 10:03 Dose: 40 mg Tramadol HCl (Ultram) 50 mg PO Q6H PRN PRN Reason: Headache Last Admin: 05/14/18 19:12 Dose: 50 mg - Labs Labs: 05/17/18 06:22 05/16/18 05:57 - Additional Findings Additional findings: - Head Exam Head Exam: ATRAUMATIC, NORMAL INSPECTION, NORMOCEPHALIC - Eye Exam Eye Exam: Normal appearance, PERRL Pupil Exam: NORMAL ACCOMODATION - ENT Exam ENT Exam: Mucous Membranes Moist, Normal Oropharynx - Respiratory Exam Respiratory Exam: Clear to Ausculation Bilateral, NORMAL BREATHING PATTERN. absent: Chest Wall Tenderness, Prolonged Expiratory Phase, Respiratory Distress - Cardiovascular Exam Cardiovascular Exam: REGULAR RHYTHM, RRR, +S1, +S2. absent: Rubs - GI/Abdominal Exam GI & Abdominal Exam: Soft, Normal Bowel Sounds - Extremities Exam Extremities Exam: Full ROM, Normal Inspection. absent: Joint Swelling, Pedal Edema - Neurological Exam Neurological Exam: Alert, Awake, CN II-XII Intact, Oriented x3 - Psychiatric Exam Psychiatric exam: Normal Affect, Normal Mood. absent: Depressed - Skin Skin Exam: Dry, Intact Assessment and Plan - Assessment and Plan (Free Text) Assessment: 58 year old male with a past medical history of hiv and sinusitus who comes in after complaining of weakness and headaches. Plan: Weakness Bacterial vs. Viral vs. Acute CVA -Neurology consulted Dr. Escobar. Help appreciated :Will f/u with further rec's -Afrebrile and not showing menigeal signs. Neurologically intact -Influenza : negative -Urine cultures: Negative -Blood culture: negative x48 hours. -h.influenzae type b ag: negative -N. meningitidis ACY/W135: negative -N. meningitidis B/E. coli K1 Ag: negative -Group B strep antigen : negative -S. pneumonai antigen: negative -Toxoplasma antibody: positive -Cryptococcus ag: negative Medications: 05/16/18: Vanco d/c Ceftriaxone 2gm q12 kati ivpb( Start: 05/15/18) HIV -Patient reports last CD4 count being in the 700's and having undectable viral load -Patient follows in [facility] with Infectious Disease Dr. Wilks in [email or web address] -CD4 count ordered .Will f/u with results. -Infectious disease Dr. Wong consulted. Help appreciated. -HIV viral load :Undectable Medications: Odefsey 1 Tab PO Daily [facility] Headache Mag Ox 400mg po BID for headache prevention as per neuro Nausea/vomiting -Zofran 4mg IVP Q6 PRN Hepatitis C -Hepatitis Panel :Positive for Hep C antibody -Hepatitis C viral load ordered :Will f/u with results -Infectious disease consulted. Help appreciated. Transaminitis Likely secondary to Hepatitis C infection, downtrending AST:66 ALT:138 PPX -Protonix 40mg PO Daily kati -Lovenox 40mg SC Daily All management per Dr. Deyanira Garsia Patient stable for discharge. Patient will need to take Cefixime 400mg po BID for 7 days. Patient will need to follow up with his outpatient doctor and obtain the results from [facility]. Patient will need the results of Hep C viral load and Toxoplasma IGM and IGG.
[2018-05-17 07:41] LABS: ALB/GLOB RATIO 1.1 (1.0-2.1); ALBUMIN 3.2 g/dL (3.5-5.0); ALT/SGPT 120 U/L (21-72); AST/SGOT 43 U/L (17-59); BLOOD UREA NITROGEN 13 mg/dL (9-20); GFR AFRICAN-AMERICAN > 60; GFR NON-AFRICAN AMERICAN > 60
[2018-05-17 08:03] VITALS: BP 142/73; PULSE 50; TEMP 98.6; O2SAT 99
[2018-05-17] MEDS: Enoxaparin 40 mg Syringe SC SCH (09:25)
[2018-05-17] MEDS: Pantoprazole 40 mg EC Tab PO SCH (09:25)
[2018-05-17] MEDS ORDERED: Magnesium Oxide 400 mg Tab UD PO SCH (10:00)
--- NOTE | 2018-05-17 12:31 | CP.PCM.PN ---
Subjective - Date & Time of Evaluation Date of Evaluation: 05/17/18 Time of Evaluation: 07:40 - Subjective Subjective: clinically same Objective - Vital Signs/Intake and Output Vital Signs (last 24 hours): Temp Pulse Resp BP Pulse Ox 98.6 F 50 L 20 142/73 99 05/17/18 08:02 05/17/18 08:02 05/17/18 08:02 05/17/18 08:02 05/17/18 08:02 Intake and Output: 05/17/18 05/17/18 06:59 18:59 Intake Total 1360 Output Total 600 Balance 760 - Medications Medications: Current Medications Enoxaparin Sodium (Lovenox) 40 mg SC DAILY [facility] Last Admin: 05/17/18 09:25 Dose: 40 mg Home Med (Emtricitab/Rilpiviri/Tenof Ala [Odefsey Tablet]) 1 tab PO DAILY [facility] Ceftriaxone Sodium 2 gm/ (Sodium Chloride) 100 mls @ 100 mls/hr IVPB Q12H [facility]INA PRN Reason: Protocol Last Admin: 05/17/18 04:06 Dose: 100 mls/hr Magnesium Oxide (Mag-Ox) 400 mg PO BID [facility] Last Admin: 05/17/18 09:25 Dose: 400 mg Ondansetron HCl (Zofran Inj) 4 mg IVP Q6H PRN PRN Reason: Nausea/Vomiting Pantoprazole Sodium (Protonix Ec Tab) 40 mg PO DAILY [facility] Last Admin: 05/17/18 09:25 Dose: 40 mg Tramadol HCl (Ultram) 50 mg PO Q6H PRN PRN Reason: Headache Last Admin: 05/14/18 19:12 Dose: 50 mg - Labs Labs: 05/17/18 06:22 05/17/18 06:22
--- NOTE | 2018-05-17 14:46 | CP.PCM.PN ---
Subjective - Date & Time of Evaluation Date of Evaluation: 05/17/18 Time of Evaluation: 02:20 - Subjective Subjective: dictated Objective - Vital Signs/Intake and Output Vital Signs (last 24 hours): Temp Pulse Resp BP Pulse Ox 98.6 F 50 L 20 142/73 99 05/17/18 08:02 05/17/18 08:02 05/17/18 08:02 05/17/18 08:02 05/17/18 08:02 Intake and Output: 05/17/18 05/17/18 06:59 18:59 Intake Total 1360 Output Total 600 Balance 760 - Medications Medications: Current Medications Enoxaparin Sodium (Lovenox) 40 mg SC DAILY [facility] Last Admin: 05/17/18 09:25 Dose: 40 mg Home Med (Patient's Own Medication) 1 tab PO DAILY [facility] Ceftriaxone Sodium 2 gm/ (Sodium Chloride) 100 mls @ 100 mls/hr IVPB Q12H HINA PRN Reason: Protocol Last Admin: 05/17/18 04:06 Dose: 100 mls/hr Magnesium Oxide (Mag-Ox) 400 mg PO BID [facility] Last Admin: 05/17/18 09:25 Dose: 400 mg Ondansetron HCl (Zofran Inj) 4 mg IVP Q6H PRN PRN Reason: Nausea/Vomiting Pantoprazole Sodium (Protonix Ec Tab) 40 mg PO DAILY [facility] Last Admin: 05/17/18 09:25 Dose: 40 mg Tramadol HCl (Ultram) 50 mg PO Q6H PRN PRN Reason: Headache Last Admin: 05/14/18 19:12 Dose: 50 mg - Labs Labs: 05/17/18 06:22 05/17/18 06:22
--- NOTE | 2018-05-18 03:34 | PN ---
Copied To: Capo Wong MD Attending MD: Capo Wong MD DATE: 05/17/2018 SUBJECTIVE: The patient was seen today. He was denying any headache. He was feeling a lot better. He was almost ready to get out. He said he felt 100%. He did have some postnasal drip yesterday, but that is better too and no headaches. He does say he has sinus issues. He will go back to his primary. I told him he should get toxoplasma IgG and IgM done because here I was not able to do the full test, and he should follow as that brain showed small small lesions which they said were of unknown significance, but need to be monitored. I also told him he is hepatitis C positive and may need treatment along with his HIV treatment. The patient was with his partner who was at the bedside, and both of them were aware of it. They were going to get medical records from here. PHYSICAL EXAMINATION: VITAL SIGNS: T-max is 98.6, pulse 50, blood pressure 142/73, respirations are 20. HEENT: Head is atraumatic, normocephalic. No maxillary tenderness present. NECK: Supple. No neck tenderness. LUNGS: Clear. No crackles or rales present. HEART: S1, S2 are regular. ABDOMEN: Soft, nontender. EXTREMITIES: Have no edema, clubbing, or cyanosis. LABORATORY DATA: White count was 4.8 today, hemoglobin 12.2, hematocrit 35.3, platelet count is 176. CMP was okay except for ALT which was 120. Liver enzymes were coming down. Definitely, he has these related to the sepsis. Procalcitonin was 0.59. His blood cultures, blood and urine did not grow anything. ASSESSMENT AND PLAN: He did come in with intractable headaches, etiology of which could be sinusitis. We did a meningitis panel on the serum as he refused for lumbar puncture, and he improved fast enough. He will be going home on Suprax 400 mg b.i.d., and he will be following with his human immunodeficiency virus doctor. He is also hepatitis C positive. He does have allergic rhinitis with postnasal drip, and he has Claritin and Flonase at home. He is on Odefsey for human immunodeficiency virus. Capo Wong MD
[2018-05-18 06:27] LABS: % CD4 (T HELPER CELL) 27 Percent (30-61); % CD8 (SUPPRESSOR T CELL) 28 Percent (12-42); ABSOLUTE CD19 CELLS 119 Cells/mcL (110-660); ABSOLUTE CD3 CELLS 345 Cells/mcL (840-3060); ABSOLUTE CD4 CELLS 146 Cells/mcL (490-1740); ABSOLUTE CD8 CELLS 149 Cells/mcL (180-1170); ABSOLUTE LYMPHOCYTES 564 Cells/mcL (850-3900); HELPER/SUPPRESSOR RATIO 0.98 Ratio (0.86-5.00)
== END 2018-05-17 16:13 | disposition home or self-care (01) | DRG 153 ==
LOC: C.ER 10:40 → C.9E 15:07 → C.3T 15:49 → OBSVTOIN 05-16 14:15
PROVIDERS: ADMIT Internal Medicine Nephrology; ATTEND Internal Medicine Nephrology
DX: J32.9 Chronic sinusitis, unspecified (principal); Z21 Asymptomatic human immunodeficiency virus [HIV] infection status; B19.20 Unspecified viral hepatitis C without hepatic coma